=== PATIENT | female | born 1950 | race Caucasian/White ===

== ENCOUNTER 2024-03-18 14:09 | Inpatient (IN) | payer MEDICARE, OTHER ==
[~2024-03-18] VITALS: Ht 160 cm; Wt 59.9 kg
[2024-03-18] MEDS ORDERED: MONT10TA22 PO (15:26)
[2024-03-18] MEDS ORDERED: PRAM0.253 PO (15:26)
[2024-03-18] MEDS ORDERED: DICL100G31 TP (15:26)
[2024-03-18] MEDS ORDERED: BACL10TA PO (15:26)
[2024-03-18] MEDS ORDERED: LOSA50TA39 PO (15:26)
[2024-03-18] MEDS ORDERED: OXYC-117 PO (15:26)
[2024-03-18] MEDS ORDERED: GABA-532 PO (15:26)
[2024-03-18] MEDS ORDERED: PROP10TA10 PO (15:26)
[2024-03-18] MEDS ORDERED: SIMV10TA98 PO (15:26)
[2024-03-18] MEDS ORDERED: MECL-159 PO (15:26)
[2024-03-18] MEDS ORDERED: CARB1TAB24 PO (15:26)
[2024-03-18] MEDS ORDERED: POTA10CA43 PO (15:26)
[2024-03-18] MEDS ORDERED: DIPH25CA83 PO ×2 (15:26)
[2024-03-18] MEDS ORDERED: VENL75TA4 PO (15:26)
[2024-03-18 15:37] LABS: BASOPHILS % (AUTO) 1.2 % (0.0-2.0); EOSINOPHILS # (AUTO) 0.3 K/uL (0.0-0.7); HEMATOCRIT 33.8 % (31.2-41.9); HEMOGLOBIN 11.3 g/dL (10.9-14.3); LYMPHOCYTES # (AUTO) 1.8 K/uL (0.8-4.8); LYMPHOCYTES % (AUTO) 45.3 % (20.5-51.5); MEAN CORPUSCULAR HEMOGLOBIN 31.7 uug (24.7-32.8); MEAN CORPUSCULAR HGB CONC 33 g/dL (32.3-35.6); MEAN CORPUSCULAR VOLUME 95.4 fL (75.5-95.3); MONOCYTES # (AUTO) 0.5 K/uL (0.1-1.30); MONOCYTES % (AUTO) 12.6 % (0.0-11.0); NEUTROPHILS # (AUTO) 1.4 K/uL (1.8-8.9); NEUTROPHILS % (AUTO) 33.9 % (38.5-71.5); PLATELET COUNT (AUTO) 215 K/uL (179-408); RED BLOOD CELL COUNT(AUTO) 3.55 MIL/uL (3.63-4.92); RED CELL DISTRIBUTION WIDTH 14.4 % (12.3-17.7); WHITE BLOOD COUNT (AUTO) 4.1 K/uL (3.8-11.8)
[2024-03-18 15:41] LABS: DIFFERENTIAL COMMENT 1
[2024-03-18] MEDS ORDERED: CALCIUM GLUCONATE IV 2 GM in IV NORMAL SALINE 100 ML IV ONE (16:00)
[2024-03-18 16:14] LABS: *BILIRUBIN,URIN NEGATIVE (NEGATIVE); *BLOOD, URINE NEGATIVE (NEGATIVE); *CLARITY,URINE SLIGHTLY CLOUDY (CLEAR); *COLOR,URINE YELLOW (YELLOW); *KETONES,URINE 1+ (NEGATIVE); *PROTEIN,URINE 1+ (NEGATIVE); *UROBILINOGEN,URINE 0.2 E.U./dl (NORMAL); LEUKOCYTE ESTERASE ,URINE NEGATIVE (NEGATIVE); NITRITE, URINE NEGATIVE (NEGATIVE); UGLUCOSE NEGATIVE (NEGATIVE)
[2024-03-18 16:29] LABS: BACTERIA,URINE FEW /HPF (NONE SEEN); RBC,URINE 0-3 /HPF (0-3); SQUAMOUS EPITHELIAL CELL,UR MODERATE /HPF (NONE SEEN); WBC,URINE 0-3 /HPF (0-3)
[2024-03-18 17:07] LABS: ALANINE AMINOTRANSFERASE 9 U/L (14-59); ALBUMIN 3.5 g/dL (3.4-5.0); ALKALINE PHOSPHATASE 90 U/L (50-136); ASPARTATE AMINOTRANSFERASE 13 U/L (15-37); BILIRUBIN,DIRECT 0.2 mg/dL (0.0-0.2); BILIRUBIN,TOTAL 0.6 mg/dL (0.2-1.0); CALCIUM 9.2 mg/dL (8.5-10.1); CARBON DIOXIDE 28 mmol/L (21-32); CHLORIDE 103 mmol/L (98-107); CREATININE 0.9 mg/dL (0.6-1.3); GLUCOSE 110 mg/dL (74-106); NT-PRO BNP 348 pg/mL (0-125); SODIUM SERUM 139 mmol/L (136-145); TOTAL PROTEIN, SERUM 8.3 g/dL (6.4-8.2); UREA NITROGEN, BLOOD 17 mg/dL (7-18)
[2024-03-18] MEDS: POTASSIUM CHLORIDE 20 MEQ POWDER PACKET PO ONE ×2 (18:15→21:39)
[2024-03-18] MEDS ORDERED: ONDANSETRON 4 MG/2 ML VIAL IV PRN (18:15)
[2024-03-18] MEDS ORDERED: MECLIZINE HCL 25 MG TABLET PO PRN (18:15)
[2024-03-18] MEDS ORDERED: REMEDY ESSENTIAL ZINC PASTE 113 GM TP PRN (18:15)
[2024-03-18] MEDS: CARBIDOPA/LEVODOPA 25-250MG TABLET PO SCH (21:25)
[2024-03-18] MEDS: ENOXAPARIN SODIUM 40 MG/0.4 ML DISP.SYRIN SQ SCH (21:26)
[2024-03-18 21:27] VITALS: BP 186/89; TEMP 98.1; O2SAT 98
[2024-03-18] MEDS: BACLOFEN 10 MG TABLET PO SCH (21:39)
[2024-03-18] MEDS: GABAPENTIN 100 MG CAPSULE PO SCH (21:39)
[2024-03-18] MEDS: IV NS 1000 ML 1,000 ML IV PRN (23:28)
[2024-03-19 06:16] VITALS: BP 173/73; TEMP 98; O2SAT 98
[2024-03-19] MEDS: POTASSIUM CHLORIDE 10 MEQ TAB.PRT.SR PO SCH (08:44)
[2024-03-19] MEDS: PROPRANOLOL HCL 10 MG TABLET PO SCH (08:44)
[2024-03-19] MEDS: LOSARTAN POTASSIUM 50 MG TABLET PO SCH (08:45)
[2024-03-19] MEDS: MONTELUKAST SODIUM 10 MG TABLET PO SCH (08:45)
[2024-03-19] MEDS: PANTOPRAZOLE SODIUM 40 MG VIAL IV SCH (08:45)
[2024-03-19] MEDS: ENSURE ENLIVE (VAN) 240 ML LIQUID PO SCH (08:45)
[2024-03-19] MEDS ORDERED: VENLAFAXINE HCL 75 MG PO SCH (09:00)
[2024-03-19 09:57] LABS: BASOPHILS % (AUTO) 1.4 % (0.0-2.0); EOSINOPHILS # (AUTO) 0.2 K/uL (0.0-0.7); HEMATOCRIT 34.5 % (31.2-41.9); HEMOGLOBIN 11.9 g/dL (10.9-14.3); LYMPHOCYTES # (AUTO) 1.5 K/uL (0.8-4.8); LYMPHOCYTES % (AUTO) 45.8 % (20.5-51.5); MEAN CORPUSCULAR HEMOGLOBIN 32.7 uug (24.7-32.8); MEAN CORPUSCULAR HGB CONC 35 g/dL (32.3-35.6); MONOCYTES # (AUTO) 0.3 K/uL (0.1-1.30); MONOCYTES % (AUTO) 8.4 % (0.0-11.0); NEUTROPHILS # (AUTO) 1.3 K/uL (1.8-8.9); NEUTROPHILS % (AUTO) 38.4 % (38.5-71.5); PLATELET COUNT (AUTO) 201 K/uL (179-408); RED BLOOD CELL COUNT(AUTO) 3.64 MIL/uL (3.63-4.92); RED CELL DISTRIBUTION WIDTH 14.6 % (12.3-17.7); WHITE BLOOD COUNT (AUTO) 3.3 K/uL (3.8-11.8)
[2024-03-19 10:07] LABS: CALCIUM 8.6 mg/dL (8.5-10.1); CARBON DIOXIDE 25 mmol/L (21-32); CHLORIDE 110 mmol/L (98-107); CREATININE 0.7 mg/dL (0.6-1.3); GLUCOSE 151 mg/dL (74-106); PHOSPHOROUS 3.2 mg/dL (2.5-4.9); POTASSIUM 4.1 mmol/L (3.5-5.1); SODIUM SERUM 144 mmol/L (136-145); UREA NITROGEN, BLOOD 11 mg/dL (7-18)
[2024-03-19 10:10] LABS: DIFFERENTIAL COMMENT 1
[2024-03-19 10:51] VITALS: BP 126/73; TEMP 97.9; O2SAT 94
[2024-03-19 10:54] VITALS: BP 140/78; TEMP 98.2; O2SAT 96
[2024-03-19] MEDS: PRAMIPEXOLE 0.25 MG TABLET PO SCH (11:24)
[2024-03-19] MEDS: VENLAFAXINE 25 MG TABLET PO SCH (11:25)
[2024-03-19 15:11] VITALS: BP 136/66; TEMP 97.6; O2SAT 94
[2024-03-19 16:56] LABS: THYROID STIMULATING HORMONE 1.722 mIU/mL (0.358-3.740)
[2024-03-19] MEDS: GABAPENTIN 100 MG CAPSULE PO SCH (17:04)
[2024-03-19] MEDS: diphenhydrAMINE 25 MG CAP PO SCH (17:06)
[2024-03-19] MEDS: SIMVASTATIN 10 MG TABLET PO SCH (17:06)
[2024-03-19 19:40] VITALS: BP 160/62; TEMP 97.9; O2SAT 96
[2024-03-20] MEDS: OXYCODONE/APAP 5-325 MG TABLET PO PRN (01:54)
[2024-03-20 06:24] VITALS: BP 187/83; TEMP 97.9; O2SAT 94
[2024-03-20 10:07] VITALS: BP 168/88; TEMP 97.8
[2024-03-20 10:08] LABS: BASOPHILS # (AUTO) 0.1 K/UL (0.0-0.2); BASOPHILS % (AUTO) 1.4 % (0.0-2.0); EOSINOPHILS # (AUTO) 0.2 K/uL (0.0-0.7); EOSINOPHILS % (AUTO) 5.5 % (0.0-7.0); HEMATOCRIT 36.8 % (31.2-41.9); HEMOGLOBIN 12.3 g/dL (10.9-14.3); LYMPHOCYTES # (AUTO) 1.7 K/uL (0.8-4.8); LYMPHOCYTES % (AUTO) 38.1 % (20.5-51.5); MEAN CORPUSCULAR HEMOGLOBIN 32.3 uug (24.7-32.8); MEAN CORPUSCULAR HGB CONC 33 g/dL (32.3-35.6); MONOCYTES # (AUTO) 0.4 K/uL (0.1-1.30); MONOCYTES % (AUTO) 9.4 % (0.0-11.0); NEUTROPHILS % (AUTO) 45.6 % (38.5-71.5); PLATELET COUNT (AUTO) 187 K/uL (179-408); RED BLOOD CELL COUNT(AUTO) 3.79 MIL/uL (3.63-4.92); RED CELL DISTRIBUTION WIDTH 14.5 % (12.3-17.7); WHITE BLOOD COUNT (AUTO) 4.3 K/uL (3.8-11.8)
[2024-03-20 10:27] LABS: DIFFERENTIAL COMMENT 1
[2024-03-20 10:41] LABS: CALCIUM 8.8 mg/dL (8.5-10.1); CARBON DIOXIDE 25 mmol/L (21-32); CHLORIDE 108 mmol/L (98-107); CREATININE 0.7 mg/dL (0.6-1.3); GLUCOSE 141 mg/dL (74-106); MAGNESIUM 2.1 mg/dL (1.8-2.4); PHOSPHOROUS 2.9 mg/dL (2.5-4.9); POTASSIUM 3.7 mmol/L (3.5-5.1); SODIUM SERUM 142 mmol/L (136-145); UREA NITROGEN, BLOOD 7 mg/dL (7-18)
[2024-03-20 12:04] VITALS: BP 141/77; TEMP 97.6; O2SAT 94
[2024-03-20 15:46] VITALS: BP 133/66; TEMP 98.7; O2SAT 96
[2024-03-20 19:58] VITALS: BP 190/100; TEMP 98.2; O2SAT 97
[2024-03-20] MEDS: hydrALAZINE HCL 20 MG/1 ML VIAL IV PRN (21:07)
[2024-03-21] MEDS: LORAZEPAM 1 MG TABLET PO ONE ×2 (02:03→16:54)
[2024-03-21] MEDS: PANTOPRAZOLE ORAL SUSPENSION 40 MG SUSPDR.PKT PO SCH (05:53)
[2024-03-21] MEDS: PANTOPRAZOLE ORAL SUSPENSION 40 MG SUSPDR.PKT ONE (06:06)
[2024-03-21 06:49] VITALS: BP 113/65; TEMP 97.9; O2SAT 95
[2024-03-21 08:00] VITALS: BP 102/50; TEMP 98.7; O2SAT 99
[2024-03-21 09:00] LABS: BASOPHILS # (AUTO) 0.1 K/UL (0.0-0.2); BASOPHILS % (AUTO) 1.2 % (0.0-2.0); EOSINOPHILS # (AUTO) 0.3 K/uL (0.0-0.7); EOSINOPHILS % (AUTO) 6.5 % (0.0-7.0); HEMOGLOBIN 12.8 g/dL (10.9-14.3); LYMPHOCYTES # (AUTO) 1.5 K/uL (0.8-4.8); LYMPHOCYTES % (AUTO) 34.3 % (20.5-51.5); MEAN CORPUSCULAR HEMOGLOBIN 32.2 uug (24.7-32.8); MEAN CORPUSCULAR HGB CONC 34 g/dL (32.3-35.6); MEAN CORPUSCULAR VOLUME 95.4 fL (75.5-95.3); MONOCYTES # (AUTO) 0.5 K/uL (0.1-1.30); MONOCYTES % (AUTO) 10.7 % (0.0-11.0); NEUTROPHILS # (AUTO) 2.1 K/uL (1.8-8.9); NEUTROPHILS % (AUTO) 47.3 % (38.5-71.5); PLATELET COUNT (AUTO) 244 K/uL (179-408); RED BLOOD CELL COUNT(AUTO) 3.98 MIL/uL (3.63-4.92); RED CELL DISTRIBUTION WIDTH 14.3 % (12.3-17.7); WHITE BLOOD COUNT (AUTO) 4.4 K/uL (3.8-11.8)
[2024-03-21 09:07] LABS: DIFFERENTIAL COMMENT 1
[2024-03-21 09:25] LABS: CALCIUM 8.8 mg/dL (8.5-10.1); CARBON DIOXIDE 24 mmol/L (21-32); CHLORIDE 107 mmol/L (98-107); GLUCOSE 141 mg/dL (74-106); MAGNESIUM 2.1 mg/dL (1.8-2.4); PHOSPHOROUS 3.2 mg/dL (2.5-4.9); SODIUM SERUM 142 mmol/L (136-145); UREA NITROGEN, BLOOD 11 mg/dL (7-18)
[2024-03-21 16:00] VITALS: BP 97/66; TEMP 97.6; O2SAT 97
[2024-03-21 19:09] LABS: *BILIRUBIN,URIN NEGATIVE (NEGATIVE); *BLOOD, URINE NEGATIVE (NEGATIVE); *CLARITY,URINE CLEAR (CLEAR); *COLOR,URINE YELLOW (YELLOW); *KETONES,URINE NEGATIVE (NEGATIVE); *PROTEIN,URINE NEGATIVE (NEGATIVE); *UROBILINOGEN,URINE 0.2 E.U./dl (NORMAL); LEUKOCYTE ESTERASE ,URINE NEGATIVE (NEGATIVE); NITRITE, URINE POSITIVE (NEGATIVE); PH,URINE 7.5 (5.0-8.0); UGLUCOSE NEGATIVE (NEGATIVE)
[2024-03-21 19:10] LABS: BACTERIA,URINE FEW /HPF (NONE SEEN); RBC,URINE 0-3 /HPF (0-3); WBC,URINE 0-3 /HPF (0-3)
[2024-03-21 20:28] VITALS: BP 109/57; TEMP 98.1; O2SAT 95
[2024-03-22 06:24] VITALS: BP 129/70; TEMP 98; O2SAT 97
[2024-03-22 07:02] LABS: EOSINOPHILS # (AUTO) 0.3 K/uL (0.0-0.7); EOSINOPHILS % (AUTO) 6.8 % (0.0-7.0); HEMATOCRIT 35.3 % (31.2-41.9); LYMPHOCYTES # (AUTO) 1.9 K/uL (0.8-4.8); LYMPHOCYTES % (AUTO) 39.7 % (20.5-51.5); MEAN CORPUSCULAR HEMOGLOBIN 32.5 uug (24.7-32.8); MEAN CORPUSCULAR HGB CONC 34 g/dL (32.3-35.6); MEAN CORPUSCULAR VOLUME 95.6 fL (75.5-95.3); MONOCYTES # (AUTO) 0.5 K/uL (0.1-1.30); MONOCYTES % (AUTO) 9.7 % (0.0-11.0); NEUTROPHILS % (AUTO) 42.8 % (38.5-71.5); PLATELET COUNT (AUTO) 214 K/uL (179-408); RED BLOOD CELL COUNT(AUTO) 3.69 MIL/uL (3.63-4.92); RED CELL DISTRIBUTION WIDTH 14.8 % (12.3-17.7); WHITE BLOOD COUNT (AUTO) 4.8 K/uL (3.8-11.8)
[2024-03-22 07:11] LABS: CALCIUM 8.9 mg/dL (8.5-10.1); CARBON DIOXIDE 25 mmol/L (21-32); CHLORIDE 104 mmol/L (98-107); CREATININE 0.9 mg/dL (0.6-1.3); GLUCOSE 144 mg/dL (74-106); MAGNESIUM 2.3 mg/dL (1.8-2.4); POTASSIUM 4.5 mmol/L (3.5-5.1); SODIUM SERUM 138 mmol/L (136-145); UREA NITROGEN, BLOOD 24 mg/dL (7-18)
[2024-03-22 08:18] LABS: DIFFERENTIAL COMMENT 1
[2024-03-22] MEDS ORDERED: diphenhydrAMINE 25 MG/10 ML UDC PO PRN (10:00)
[2024-03-22 10:12] VITALS: BP 120/63; TEMP 97.8; O2SAT 93
[2024-03-22 15:25] VITALS: BP 91/58; TEMP 98.2; O2SAT 97
[2024-03-22] MEDS: ARGININE/GLUTAMINE/CALCIUM BMB 1 EACH POWD.PACK PO SCH (17:02)
[2024-03-22 20:00] VITALS: TEMP 97.6
[2024-03-22] MEDS: NITROFURANTOIN/NITROFURAN MAC 100 MG CAPSULE PO SCH (21:08)
[2024-03-23] MEDS: ALPRAZOLAM 0.25 MG TABLET PO PRN (02:49)
[2024-03-23 06:40] VITALS: TEMP 97.8
[2024-03-23 08:09] VITALS: BP 150/72; TEMP 97.6; O2SAT 96
[2024-03-23 08:36] LABS: BASOPHILS # (AUTO) 0.1 K/UL (0.0-0.2); BASOPHILS % (AUTO) 1.3 % (0.0-2.0); EOSINOPHILS # (AUTO) 0.4 K/uL (0.0-0.7); EOSINOPHILS % (AUTO) 8.5 % (0.0-7.0); HEMATOCRIT 35.6 % (31.2-41.9); LYMPHOCYTES # (AUTO) 1.8 K/uL (0.8-4.8); LYMPHOCYTES % (AUTO) 43.1 % (20.5-51.5); MEAN CORPUSCULAR HEMOGLOBIN 32.2 uug (24.7-32.8); MEAN CORPUSCULAR HGB CONC 34 g/dL (32.3-35.6); MEAN CORPUSCULAR VOLUME 95.3 fL (75.5-95.3); MONOCYTES # (AUTO) 0.5 K/uL (0.1-1.30); MONOCYTES % (AUTO) 11.5 % (0.0-11.0); NEUTROPHILS # (AUTO) 1.5 K/uL (1.8-8.9); NEUTROPHILS % (AUTO) 35.6 % (38.5-71.5); PLATELET COUNT (AUTO) 206 K/uL (179-408); RED BLOOD CELL COUNT(AUTO) 3.73 MIL/uL (3.63-4.92); RED CELL DISTRIBUTION WIDTH 14.7 % (12.3-17.7); WHITE BLOOD COUNT (AUTO) 4.1 K/uL (3.8-11.8)
[2024-03-23 08:55] LABS: DIFFERENTIAL COMMENT 1
[2024-03-23 09:21] LABS: CALCIUM 9.1 mg/dL (8.5-10.1); CARBON DIOXIDE 26 mmol/L (21-32); CHLORIDE 107 mmol/L (98-107); CREATININE 0.7 mg/dL (0.6-1.3); GLUCOSE 114 mg/dL (74-106); MAGNESIUM 2.4 mg/dL (1.8-2.4); PHOSPHOROUS 5.1 mg/dL (2.5-4.9); POTASSIUM 4.4 mmol/L (3.5-5.1); SODIUM SERUM 141 mmol/L (136-145); UREA NITROGEN, BLOOD 15 mg/dL (7-18)
[2024-03-23] MEDS: VENLAFAXINE XR 75 MG TAB.ER.24H PO SCH (09:38)
[2024-03-23] MEDS ORDERED: NITR100C6 PO (14:10)
[2024-03-23] MEDS ORDERED: VENL37.55 PO (14:10)
[2024-03-23] MEDS ORDERED: ALPR0.255 PO (14:10)
[2024-03-23 16:20] VITALS: BP 153/68; TEMP 97.6; O2SAT 98
[2024-03-23 21:32] VITALS: BP 112/62; TEMP 97.5; O2SAT 96
[2024-03-23] MEDS: MAGNESIUM HYDROXIDE 30 ML LIQUID UDC PO PRN (21:42)
[2024-03-24] VITALS (7 sets, daily range): BP systolic 81–141; BP diastolic 42–79; TEMP 97.3–97.8; O2SAT 95–97
[2024-03-24] MEDS: ACETAMINOPHEN 325 MG TABLET PO PRN (14:53)
[2024-03-24] MEDS: IV NORMAL SALINE 250 ML IV ONE (22:18)
[2024-03-25 02:30] VITALS: BP 111/62
[2024-03-25] MEDS: IV NORMAL SALINE 500 ML IV ONE (02:34)
[2024-03-25 06:36] VITALS: BP 128/65; TEMP 97.4; O2SAT 96
[2024-03-25 08:25] LABS: BASOPHILS # (AUTO) 0.1 K/UL (0.0-0.2); BASOPHILS % (AUTO) 1.1 % (0.0-2.0); EOSINOPHILS # (AUTO) 0.3 K/uL (0.0-0.7); EOSINOPHILS % (AUTO) 7.2 % (0.0-7.0); HEMATOCRIT 35.7 % (31.2-41.9); HEMOGLOBIN 12.2 g/dL (10.9-14.3); LYMPHOCYTES # (AUTO) 1.5 K/uL (0.8-4.8); LYMPHOCYTES % (AUTO) 32.4 % (20.5-51.5); MEAN CORPUSCULAR HEMOGLOBIN 32.6 uug (24.7-32.8); MEAN CORPUSCULAR HGB CONC 34 g/dL (32.3-35.6); MEAN CORPUSCULAR VOLUME 95.4 fL (75.5-95.3); MONOCYTES # (AUTO) 0.5 K/uL (0.1-1.30); MONOCYTES % (AUTO) 10.7 % (0.0-11.0); NEUTROPHILS # (AUTO) 2.3 K/uL (1.8-8.9); NEUTROPHILS % (AUTO) 48.6 % (38.5-71.5); PLATELET COUNT (AUTO) 215 K/uL (179-408); RED BLOOD CELL COUNT(AUTO) 3.74 MIL/uL (3.63-4.92); RED CELL DISTRIBUTION WIDTH 14.5 % (12.3-17.7); WHITE BLOOD COUNT (AUTO) 4.7 K/uL (3.8-11.8)
[2024-03-25 08:30] VITALS: TEMP 97
[2024-03-25 08:39] LABS: *BILIRUBIN,URIN NEGATIVE (NEGATIVE); *BLOOD, URINE NEGATIVE (NEGATIVE); *CLARITY,URINE CLEAR (CLEAR); *COLOR,URINE YELLOW (YELLOW); *KETONES,URINE NEGATIVE (NEGATIVE); *PROTEIN,URINE NEGATIVE (NEGATIVE); *UROBILINOGEN,URINE 0.2 E.U./dl (NORMAL); LEUKOCYTE ESTERASE ,URINE NEGATIVE (NEGATIVE); NITRITE, URINE NEGATIVE (NEGATIVE); UGLUCOSE NEGATIVE (NEGATIVE)
[2024-03-25 08:40] LABS: DIFFERENTIAL COMMENT 1
[2024-03-25 08:43] LABS: ALANINE AMINOTRANSFERASE 13 U/L (14-59); ALBUMIN 3.1 g/dL (3.4-5.0); ALKALINE PHOSPHATASE 81 U/L (50-136); ASPARTATE AMINOTRANSFERASE 16 U/L (15-37); BILIRUBIN,TOTAL 0.3 mg/dL (0.2-1.0); CALCIUM 8.9 mg/dL (8.5-10.1); CARBON DIOXIDE 28 mmol/L (21-32); CHLORIDE 105 mmol/L (98-107); CREATININE 0.8 mg/dL (0.6-1.3); GLUCOSE 109 mg/dL (74-106); SODIUM SERUM 142 mmol/L (136-145); TOTAL PROTEIN, SERUM 6.6 g/dL (6.4-8.2); UREA NITROGEN, BLOOD 24 mg/dL (7-18)
== END 2024-03-25 14:30 | DRG 57 ==
LOC: ER 14:09 → MEDSURG3 20:23 → MEDSURG1 03-20 23:00
DX: G20.A1 Parkinson's disease without dyskinesia, without mention of fluctuations (principal); F02.84 Dementia in other diseases classified elsewhere, unspecified severity, with anxiety; N39.0 Urinary tract infection, site not specified; F02.83 Dementia in other diseases classified elsewhere, unspecified severity, with mood disturbance; F05 Delirium due to known physiological condition; I10 Essential (primary) hypertension; F02.80 Dementia in other diseases classified elsewhere, unspecified severity, without behavioral disturbance, psychotic disturbance, mood disturbance, and anxiety; R53.1 Weakness; E87.6 Hypokalemia; R29.6 Repeated falls; M19.012 Primary osteoarthritis, left shoulder; M19.011 Primary osteoarthritis, right shoulder; F41.0 Panic disorder [episodic paroxysmal anxiety]; E78.5 Hyperlipidemia, unspecified; F32.A Depression, unspecified; F51.3 Sleepwalking [somnambulism]
CPT/HCPCS: 36415; 70450; 71045; 71250; 83605; 83735; 84100; 84443; 84484; 85025; 85730; A4606; A4663; A6213; C1758; G0378; J0360; J1650; J2470; J7040; Q0163